=== PATIENT | female | born 1975 | race Caucasian/White ===

== ENCOUNTER 2016-06-29 14:38 | Emergency (ER) | payer OTHER ==
--- NOTE | 2016-06-29 16:47 | DIAGNOSTIC IMAGING REPORT ---
PROCEDURE: XR CHEST 2 VIEW INDICATION: FEVER TECHNIQUE: PA and lateral views. COMPARISON: None. FINDINGS: Lungs are clear. Heart and mediastinum are normal. Thorax is normal. IMPRESSION: 1. Negative chest.
--- NOTE | 2016-06-29 16:53 | ED CLINICAL REPORT ---
Clinical Report - Physicians/Mid Levels [facility] [address] [place] [address] 06/29/2016 14:41 Patient: MARGOT OATES Time Seen: 14:50 Jun 29 2016. Arrived- By private vehicle. Historian- patient. 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 The illness is described as mild. The patient has had a cough, chills and muscle aches. No difficulty breathing, chest discomfort, sore throat, hoarseness or nasal discharge. No sinus pressure. (3 days of cough, fatigue, myalgias and arthralgias. No sick contacts. No recent travel. No hemoptysis, no night sweats.). Additional history - No known contact with a sick individual. REVIEW OF SYSTEMS No headache, eye discomfort, nausea, vomiting or diarrhea. No abdominal pain, pedal edema, calf pain or skin rash. All systems otherwise negative, except as recorded above. PAST HISTORY Problems: Headache. Depression. Dental Caries. Additional Surgeries: Cholecystectomy. Medications: Vitamins/Minerals Oral. Phentermine HCl Oral (Capsule 30 mg) 1 capsule, daily. Topiramate 50mg daily. PROzac Oral 20 mg, daily. Allergies: No Known Drug Allergy. SOCIAL HISTORY Never smoker. No alcohol use or drug use. ADDITIONAL NOTES The nursing notes have been reviewed. PHYSICAL EXAM Vital Signs: 06/29/2016 14:45 BP: 146/103. HR: 86. RR: 18. O2 saturation: 100%. Temp: 98.0 F. Pain level now: 0/10. Appearance: Alert. Eyes: Eyes normal inspection. ENT: Ears normal. Pharynx normal. CVS: Normal heart rate and rhythm. Heart sounds normal. Normal rhythm. No extra heart sounds. Respiratory: No respiratory distress. Breath sounds normal. No retractions. Skin: Skin warm. LABS, X-RAYS, AND EKG Chest X-ray: (IMPRESSION: 1. Negative chest. Electronically Final signed by:Pan Dewitt MD 06/29/2016 4:50:37 PM). Laboratory Tests: Rapid Influenza Screen: (LAURA: 06/29/2016 14:50) ( MsgRcvd 06/29/2016 15:26) Final results SPECIMEN DESCRIPTION: N Test Result Flag Units (Reference) RAPID INFLUENZA SCREEN DATE: 06/29/16 INFLUENZA A: NEGATIVE SCREEN FOR INFLUENZA A INFLUENZA B: NEGATIVE SCREEN FOR INFLUENZA B . PROGRESS AND PROCEDURES Course of Care: Patient with 3 days of symptoms, afebrile in the ER, relatively negative exam, lungs clear. Rapid implants and negative, suspect viral etiology. No hemoptysis no recent foreign travel, no significant weight loss. 06/29/2016 16:52 BP: 144/97. HR: 81. RR: 16. O2 saturation: 99%. Patient is stable. Patient/family counseled. Differential Diagnosis: I considered viral bronchitis, laryngotracheobronchitis, viral pneumonia, bacterial bronchitis, mycoplasmal etiology and chlamydial bronchitis as a possible cause of cough in this patient. This is a partial list of diagnoses considered. Disposition: Discharged. CLINICAL IMPRESSION Acute upper respiratory infection. Acute viral syndrome INSTRUCTIONS Drink plenty of fluids. Warnings: Further evaluation is necessary. Prescription Medications: Tylenol with Codeine Tylenol #3 (30 mg / 300 mg) : take 1 tablet orally every 6 hours as needed for pain. Dispense ten (10). No refill. Substitution is permissible. Zofran (orally disintegrating tablets) 4 mg: take 1 orally every 6 hours for 3 days as needed for nausea and vomiting. Dispense fifteen (15). No refill. Substitution is permissible. OTC Medications: Motrin IB 200 mg (available over the counter): take 4 orally every 8 hours for 5 days, as needed for pain Follow-up: Follow up with your doctor in three days. (Electronically signed by Hayley Long P.A.-C 06/29/2016 17:35)
--- NOTE | 2016-06-29 16:53 | ED ORDER SUMMARY ---
..... Patient: MARGOT OATES OrderSheet [facility] VisitID: [id number] [address] [place] [address] 40y, F Registration Date/Time: 06/29/2016 ORDER SHEET Weight: 86.1 kg (stated) Allergies: No Known Drug Allergy GENERAL ORDERS: Rapid Influenza Screen (Nasal Pharyngeal) (n) Urgent (14:59 06/29/2016 EKoroleva P.A.-C) (Ack 15:02 NHouse ER Tech1) (15:02 NHouse ER Tech1) Chest 2V Urgent (15:43 06/29/2016 EKoroleva P.A.-C) (16:01 MCampbell) MEDICATION ORDERS: Tylenol w Codeine PO 2 tabs (HIGH ALERT MEDICATION, NOW) (16:52 06/29/2016 EKoroleva P.A.-C) (Ack 16:53 Nellie R.N.) (16:57 Nellie R.N.) IV FLUIDS: ORDER SHEET NOTES: [Electronically signed by Frieda Vasquez R.N. (17:01 06/29/2016)] [Electronically signed by Hayley Long P.A.-C (17:35 06/29/2016)] [Electronically locked/signed by Frieda Vasquez R.N. (17:01 06/29/2016)]
--- NOTE | 2016-06-29 16:53 | ED CLINICAL REPORT ---
Clinical Report - Physicians/Mid Levels [facility] [address] [place] [address] 06/29/2016 14:41 Patient: MARGOT OATES Time Seen: 14:50 Jun 29 2016. Arrived- By private vehicle. Historian- patient. 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 The illness is described as mild. The patient has had a cough, chills and muscle aches. No difficulty breathing, chest discomfort, sore throat, hoarseness or nasal discharge. No sinus pressure. (3 days of cough, fatigue, myalgias and arthralgias. No sick contacts. No recent travel. No hemoptysis, no night sweats.). Additional history - No known contact with a sick individual. REVIEW OF SYSTEMS No headache, eye discomfort, nausea, vomiting or diarrhea. No abdominal pain, pedal edema, calf pain or skin rash. All systems otherwise negative, except as recorded above. PAST HISTORY Problems: Headache. Depression. Dental Caries. Additional Surgeries: Cholecystectomy. Medications: Vitamins/Minerals Oral. Phentermine HCl Oral (Capsule 30 mg) 1 capsule, daily. Topiramate 50mg daily. PROzac Oral 20 mg, daily. Allergies: No Known Drug Allergy. SOCIAL HISTORY Never smoker. No alcohol use or drug use. ADDITIONAL NOTES The nursing notes have been reviewed. PHYSICAL EXAM Vital Signs: 06/29/2016 14:45 BP: 146/103. HR: 86. RR: 18. O2 saturation: 100%. Temp: 98.0 F. Pain level now: 0/10. Appearance: Alert. Eyes: Eyes normal inspection. ENT: Ears normal. Pharynx normal. CVS: Normal heart rate and rhythm. Heart sounds normal. Normal rhythm. No extra heart sounds. Respiratory: No respiratory distress. Breath sounds normal. No retractions. Skin: Skin warm. LABS, X-RAYS, AND EKG Chest X-ray: (IMPRESSION: 1. Negative chest. Electronically Final signed by:Pan Dewitt MD 06/29/2016 4:50:37 PM). Laboratory Tests: Rapid Influenza Screen: (LAURA: 06/29/2016 14:50) ( MsgRcvd 06/29/2016 15:26) Final results SPECIMEN DESCRIPTION: N Test Result Flag Units (Reference) RAPID INFLUENZA SCREEN DATE: 06/29/16 INFLUENZA A: NEGATIVE SCREEN FOR INFLUENZA A INFLUENZA B: NEGATIVE SCREEN FOR INFLUENZA B . PROGRESS AND PROCEDURES Course of Care: Patient with 3 days of symptoms, afebrile in the ER, relatively negative exam, lungs clear. Rapid implants and negative, suspect viral etiology. No hemoptysis no recent foreign travel, no significant weight loss. 06/29/2016 16:52 BP: 144/97. HR: 81. RR: 16. O2 saturation: 99%. Patient is stable. Patient/family counseled. Differential Diagnosis: I considered viral bronchitis, laryngotracheobronchitis, viral pneumonia, bacterial bronchitis, mycoplasmal etiology and chlamydial bronchitis as a possible cause of cough in this patient. This is a partial list of diagnoses considered. Disposition: Discharged. CLINICAL IMPRESSION Acute upper respiratory infection. Acute viral syndrome INSTRUCTIONS Drink plenty of fluids. Warnings: Further evaluation is necessary. Prescription Medications: Tylenol with Codeine Tylenol #3 (30 mg / 300 mg) : take 1 tablet orally every 6 hours as needed for pain. Dispense ten (10). No refill. Substitution is permissible. Zofran (orally disintegrating tablets) 4 mg: take 1 orally every 6 hours for 3 days as needed for nausea and vomiting. Dispense fifteen (15). No refill. Substitution is permissible. OTC Medications: Motrin IB 200 mg (available over the counter): take 4 orally every 8 hours for 5 days, as needed for pain Follow-up: Follow up with your doctor in three days. (Electronically signed by Hayley Long P.A.-C 06/29/2016 17:35)
--- NOTE | 2016-06-29 16:53 | ED NURSING NOTES ---
Clinical Report - Nurses [facility] [address] [place] [address] 06/29/2016 14:41 Patient: MARGOT OATES TRIAGE Triage time 14:47. Acuity: LEVEL 4. Chief Complaint: (dizzy and "super bad cough"). Alert. No acute distress. SEPSIS SCREEN: Sepsis Screen. Negative (no infection suspected/documented). SHADI COMA SCORE: [place] Coma Scale: 15- eyes open spontaneously (4); best verbal response- oriented x 4 (5); best motor response- obeys commands (6). --14:51 Frieda Vasquez R.N. 14:45 06/29/16. BP: 146/103. HR: 86. RR: 18. O2 saturation: 100%. Temp: 98.0 F. Pain level now: 0/10.. Pain level upon arrival: 0/10. Pain level at maximum: 10/10. (coughing). It has been waxing/waning. --14:51 Frieda Vasquez R.N. Weight: 86.1 kg stated. Height/Length: 64 inches Per Patient. BMI: 32.6. --14:48 Frieda Vasquez R.N. Medications PROzac Oral 20 mg, daily. --14:49 Frieda Vasquez R.N. Topiramate 50mg daily. --14:49 Frieda Vasquez R.N. Phentermine HCl Oral (Capsule 30 mg) 1 capsule, daily. --14:50 Frieda Vasquez R.N. Vitamins/Minerals Oral. --14:50 Frieda Vasquez R.N. Allergies No Known Drug Allergy. --14:50 Frieda Vasquez R.N. History Arrived by private vehicle. Historian: patient. Accompanied by family. Primary physician (Dr. Mario). Onset. (4 days ago continues to get worse). 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 PAST MEDICAL HX: Immunizations: up-to-date. SOCIAL HX: Never smoker. No alcohol use or drug use. No infectious disease exposure. ABUSE ASSESSMENT: Abuse assessment: The patient was asked "Do you feel safe in your home?" and "Has anyone hurt you or threatened to hurt you?". No report of abuse. SELF HARM ASSESSMENT: A self harm assessment was performed. The patient answered "no" to the question "Do you have thoughts of harming or killing yourself?" and "Have you recently had thoughts about harming or killing others?". NUTRITIONAL RISK ASSESSMENT: The nutritional risk assessment revealed no deficiencies. FUNCTIONAL ASSESSMENT: Functional assessment: no impairments noted. LEARNING NEEDS ASSESSMENT: The learning needs assessment revealed no barriers. --14:51 Frieda Vasquez R.N. PROBLEMS: Headache. Depression. Dental Caries. --14:50 Frieda Vasquez R.N. ADDITIONAL SURGERIES: Cholecystectomy. --14:51 Frieda Vasquez R.N. Interventions ID band on patient. Ambulatory. --14:51 Frieda Vasquez R.N. PHYSICAL ASSESSMENT Ambulatory to room. GENERAL / NEURO / PSYCH: Alert. Appears in no acute distress. HEENT: Mucous membranes are pink. RESPIRATORY: Respirations not labored. CVS: Capillary refill less than 2 seconds. SKIN: Skin is warm and dry. --14:51 Frieda Vasquez R.N. NURSING PROGRESS NOTES Head of bed elevated. Two patient identifiers checked. Call light placed in reach. Side rails up x 2. Bed placed in lowest position. Brakes of bed on. Patient ready for evaluation- chart flagged. --14:51 rFieda Vasquez R.N. 16:52 06/29/16. BP: 144/97. HR: 81. RR: 16. O2 saturation: 99%. --16:52 Frieda Vasquez R.N. Patient informed about reason for wait. --16:52 Frieda Vasquez R.N. 16:57 06/29/2016 TYLENOL W CODEINE (Acetaminophen-Codeine) PO 2 tab given. Allergies verified and confirmed 5 rights. --16:57 Frieda Vasquez R.N. DISPOSITION / DISCHARGE Departure time: 1652. ( BP: 144/97. HR: 81. RR: 16. O2 saturation: 99%). No learning barriers present. Discharge instructions provided and reviewed with the patient. Reviewed medication(s) side effects, precautions, dosing and course information. Prescription(s) given to the patient. Reviewed referral to family practice for followup. Patient verbalized understanding. Written instructions provided in [place]an. The patient was discharged home and accompanied by report manager. She left the Emergency Department ambulatory and via private vehicle. Parachute Marker driving. Medication list reviewed and validated. --17:00 Frieda Vasquez R.N. 16:52 06/29/16. RR: 16. --17:00 Frieda Vasquez R.N. Locked/Released at 06/29/2016 17:01 by Frieda Vasquez R.N.
--- NOTE | 2016-06-29 16:53 | ED NURSING NOTES ---
Clinical Report - Nurses [facility] [address] [place] [address] 06/29/2016 14:41 Patient: MARGOT OATES TRIAGE Triage time 14:47. Acuity: LEVEL 4. Chief Complaint: (dizzy and "super bad cough"). Alert. No acute distress. SEPSIS SCREEN: Sepsis Screen. Negative (no infection suspected/documented). SHADI COMA SCORE: [place] Coma Scale: 15- eyes open spontaneously (4); best verbal response- oriented x 4 (5); best motor response- obeys commands (6). --14:51 Frieda Vasquez R.N. 14:45 06/29/16. BP: 146/103. HR: 86. RR: 18. O2 saturation: 100%. Temp: 98.0 F. Pain level now: 0/10.. Pain level upon arrival: 0/10. Pain level at maximum: 10/10. (coughing). It has been waxing/waning. --14:51 Frieda Vasquez R.N. Weight: 86.1 kg stated. Height/Length: 64 inches Per Patient. BMI: 32.6. --14:48 Frieda Vasquez R.N. Medications PROzac Oral 20 mg, daily. --14:49 Frieda Vasquez R.N. Topiramate 50mg daily. --14:49 Frieda Vasquez R.N. Phentermine HCl Oral (Capsule 30 mg) 1 capsule, daily. --14:50 Frieda Vasquez R.N. Vitamins/Minerals Oral. --14:50 Frieda Vasquez R.N. Allergies No Known Drug Allergy. --14:50 Frieda Vasquez R.N. History Arrived by private vehicle. Historian: patient. Accompanied by family. Primary physician (Dr. Mario). Onset. (4 days ago continues to get worse). 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 PAST MEDICAL HX: Immunizations: up-to-date. SOCIAL HX: Never smoker. No alcohol use or drug use. No infectious disease exposure. ABUSE ASSESSMENT: Abuse assessment: The patient was asked "Do you feel safe in your home?" and "Has anyone hurt you or threatened to hurt you?". No report of abuse. SELF HARM ASSESSMENT: A self harm assessment was performed. The patient answered "no" to the question "Do you have thoughts of harming or killing yourself?" and "Have you recently had thoughts about harming or killing others?". NUTRITIONAL RISK ASSESSMENT: The nutritional risk assessment revealed no deficiencies. FUNCTIONAL ASSESSMENT: Functional assessment: no impairments noted. LEARNING NEEDS ASSESSMENT: The learning needs assessment revealed no barriers. --14:51 Frieda Vasquez R.N. PROBLEMS: Headache. Depression. Dental Caries. --14:50 Frieda Vasquez R.N. ADDITIONAL SURGERIES: Cholecystectomy. --14:51 Frieda Vasquez R.N. Interventions ID band on patient. Ambulatory. --14:51 Frieda Vasquez R.N. PHYSICAL ASSESSMENT Ambulatory to room. GENERAL / NEURO / PSYCH: Alert. Appears in no acute distress. HEENT: Mucous membranes are pink. RESPIRATORY: Respirations not labored. CVS: Capillary refill less than 2 seconds. SKIN: Skin is warm and dry. --14:51 Frieda Vasquez R.N. NURSING PROGRESS NOTES Head of bed elevated. Two patient identifiers checked. Call light placed in reach. Side rails up x 2. Bed placed in lowest position. Brakes of bed on. Patient ready for evaluation- chart flagged. --14:51 Frieda Vasquez R.N. 16:52 06/29/16. BP: 144/97. HR: 81. RR: 16. O2 saturation: 99%. --16:52 Frieda Vasquez R.N. Patient informed about reason for wait. --16:52 Frieda Vasquez R.N. 16:57 06/29/2016 TYLENOL W CODEINE (Acetaminophen-Codeine) PO 2 tab given. Allergies verified and confirmed 5 rights. --16:57 Frieda Vasquez R.N. DISPOSITION / DISCHARGE Departure time: 1652. ( BP: 144/97. HR: 81. RR: 16. O2 saturation: 99%). No learning barriers present. Discharge instructions provided and reviewed with the patient. Reviewed medication(s) side effects, precautions, dosing and course information. Prescription(s) given to the patient. Reviewed referral to family practice for followup. Patient verbalized understanding. Written instructions provided in Japanese. The patient was discharged home and accompanied by distribution spec. She left the Emergency Department ambulatory and via private vehicle. Soldering Technician driving. Medication list reviewed and validated. --17:00 Frieda Vasquez R.N. 16:52 06/29/16. RR: 16. --17:00 Frieda Vasquez R.N. Locked/Released at 06/29/2016 17:01 by Frieda Vasquez R.N.
--- NOTE | 2016-06-29 16:53 | ED ORDER SUMMARY ---
..... Patient: MARGOT OATES OrderSheet [facility] VisitID: [id number] [address] [place] [address] 40y, F Registration Date/Time: 06/29/2016 ORDER SHEET Weight: 86.1 kg (stated) Allergies: No Known Drug Allergy GENERAL ORDERS: Rapid Influenza Screen (Nasal Pharyngeal) (n) Urgent (14:59 06/29/2016 EKoroleva P.A.-C) (Ack 15:02 NHouse ER Tech1) (15:02 NHouse ER Tech1) Chest 2V Urgent (15:43 06/29/2016 EKoroleva P.A.-C) (16:01 MCampbell) MEDICATION ORDERS: Tylenol w Codeine PO 2 tabs (HIGH ALERT MEDICATION, NOW) (16:52 06/29/2016 EKoroleva P.A.-C) (Ack 16:53 Nellie R.N.) (16:57 Nellie R.N.) IV FLUIDS: ORDER SHEET NOTES: [Electronically signed by Frieda Vasquez R.N. (17:01 06/29/2016)] [Electronically signed by Hayley Long P.A.-C (17:35 06/29/2016)] [Electronically locked/signed by Frieda Vasquez R.N. (17:01 06/29/2016)]
--- NOTE | 2016-06-29 17:35 | ED DISCHARGE INSTRUCTIONS ---
Patient: MARGOT OATES General Instructions [facility] VisitID: [id number] [place] [address] 40y, F Registration Date/Time: 06/29/2016 Acute upper respiratory infection. Acute viral syndrome INSTRUCTIONS Drink plenty of fluids. Warnings: Further evaluation is necessary. Prescription Medications: Tylenol with Codeine Tylenol #3 (30 mg / 300 mg) : take 1 tablet orally every 6 hours as needed for pain. Dispense ten (10). No refill. Substitution is permissible. Zofran (orally disintegrating tablets) 4 mg: take 1 orally every 6 hours for 3 days as needed for nausea and vomiting. Dispense fifteen (15). No refill. Substitution is permissible. OTC Medications: Motrin IB 200 mg (available over the counter): take 4 orally every 8 hours for 5 days, as needed for pain Follow-up: Follow up with your doctor in three days. ADDITIONAL INFORMATION Viral Respiratory Illness [Adult] You have an Upper Respiratory Illness (URI) caused by a virus. This illness is contagious during the first few days. It is spread through the air by coughing and sneezing or by direct contact (touching the sick person and then touching your own eyes, nose or mouth). Most viral illnesses go away within 7-10 days with rest and simple home remedies. Sometimes, the illness may last for several weeks. Antibiotics will not kill a virus and are generally not prescribed for this condition. Home Care: 1) If symptoms are severe, rest at home for the first 2-3 days. When you resume activity, don't let yourself get too tired. 2) Avoid being exposed to cigarette smoke (yours or others). 3) Tylenol (acetaminophen) or ibuprofen (Advil, Motrin) will help fever, muscle aching and headache. (Persons under 18 with fever should not take aspirin since this may cause liver damage.) 4) Your appetite may be poor, so a light diet is fine. Avoid dehydration by drinking 6-8 glasses of fluids per day (water, soft drinks, juices, tea, soup). Extra fluids will help loosen secretions in the nose and lungs. 5) Ukwr-szf-kfpjpxs cold medicines will not shorten the length of time youre sick, but they may be helpful for the following symptoms: cough (Robitussin DM); sore throat (Chloraseptic lozenges or spray); nasal and sinus congestion (Actifed, Sudafed, Chlortrimeton). Follow Up with your doctor or as advised if you dont improve over the next week. Get Prompt Medical Attention if any of the following occur: -- Cough with lots of colored sputum (mucus) or blood in your sputum -- Chest pain, shortness of breath, wheezing or have trouble breathing -- Severe headache; face, neck or ear pain -- Fever over 100.4 F (38.0 C) for more than three days -- You cant swallow due to throat pain Viral Syndrome (Adult) A viral illness may cause a number of symptoms. The symptoms depend on the part of the body that the virus affects. If it settles in the nose, throat, and lungs, it may cause cough, sore throat, congestion, and sometimes headache. If it settles in the stomach and intestinal tract, it may cause vomiting and diarrhea. Sometimes it causes vague symptoms like "aching all over," feeling tired, loss of appetite, or fever. A viral illness usually lasts1 to 2 weeks, but sometimes it lasts longer. In some cases, a more serious infection can look like a viral syndrome in the first few days of the illness. You may need anotherexam and additional teststo know the difference.Watch for the warning signs listed below. Home care Follow these guidelines for taking care of yourself at home: If symptoms are severe, rest at home for the first 2 to 3 days. Stay away from cigarette smoke - both your smoke and the smoke from others. You may useacetaminophen or ibuprofen for fever, muscle aching, and headache, unless another medicine was prescribed for this.If you have chronic liver or kidney disease or ever had a stomach ulcer or GI bleeding, talk with your doctor before using these medicinesNo one who is younger than 18 and ill with a fever should take aspirin. It may cause severe liver damage. Your appetite may be poor, so a light diet is fine. Avoid dehydration by drinking 8 to 12 8-ounce glasses of fluids each day. This may include water; orange juice; lemonade; apple, grape, and cranberry juice; clear fruit drinks; electrolyte replacement and sports drinks; and decaffeinated teas and coffee. If you have been diagnosed with a kidney disease, ask your doctor how much and what types of fluids you should drink to prevent dehydration. If you have kidney disease, drinking too much fluid can cause it build up in the your body and be dangerous to your health. Lbij-gui-xmoaiuz remedies won't shorten the length of the illness but may be helpful forcough, sore throat; and nasal and sinus congestion. Don't use decongestants if you have high blood pressure. Follow-up care Follow up with your health care provider if you do not improve over the next week. When to seek medical care Get prompt medical attention if any of these occur: Cough with lots of colored sputum (mucus) or blood in your sputum Chest pain, shortness of breath, wheezing, or difficulty breathing Severe headache; face, neck, or ear pain Severe, constant pain in the lower right side of your belly (abdominal) Continued vomiting (cant keep liquids down) Frequent diarrhea (more than 5 times a day); blood (red or black color) or mucus in diarrhea Feeling weak, dizzy, or like you are going to faint Extreme thirst Fever of 100.4 F (38 C) oral or higher, not better with fever medication Convulsion Ondansetron Hydrochloride Oral tablet What is this medicine? ONDANSETRON (on PATRICIA se koko) is used to treat nausea and vomiting caused by chemotherapy. It is also used to prevent or treat nausea and vomiting after surgery. How should I use this medicine? Take this medicine by mouth with a glass of water. Follow the directions on your prescription label. Take your doses at regular intervals. Do not take your medicine more often than directed. Talk to your quality supervisor regarding the use of this medicine in children. Special care may be needed. What side effects may I notice from receiving this medicine? Side effects that you should report to your doctor or health director of home care hospice as soon as possible: allergic reactions like skin rash, itching or hives, swelling of the face, lips or tongue breathing problems dizziness fast or irregular heartbeat feeling faint or lightheaded, falls fever and chills swelling of the hands or feet tightness in the chest Side effects that usually do not require medical attention (report to your doctor or health director of home care hospice if they continue or are bothersome): constipation or diarrhea headache What may interact with this medicine? Do not take this medicine with any of the following medications: -apomorphine -cisapride -dofetilide -dronedarone -pimozide -thioridazine -ziprasidone This medicine may also interact with the following medications: -carbamazepine -phenytoin -rifampicin -tramadol -other medicines that prolong the QT interval (cause an abnormal heart rhythm) What if I miss a dose? If you miss a dose, take it as soon as you can. If it is almost time for your next dose, take only that dose. Do not take double or extra doses. Where should I keep my medicine? Keep out of the reach of children. Store between 2 and 30 degrees C (36 and 86 degrees F). Throw away any unused medicine after the expiration date. What should I tell my health care provider before I take this medicine? They need to know if you have any of these conditions: heart disease history of irregular heartbeat liver disease low levels of magnesium or potassium in the blood an unusual or allergic reaction to ondansetron, granisetron, other medicines, foods, dyes, or preservatives or trying to get breast-feeding What should I watch for while using this medicine? Check with your doctor or health director of home care hospice right away if you have any sign of an allergic reaction. Ibuprofen Oral tablet What is this medicine? IBUPROFEN (eye BYOO proe fen) is a non-steroidal anti-inflammatory drug (NSAID). It is used for dental pain, fever, headaches or migraines, osteoarthritis, rheumatoid arthritis, or painful monthly periods. It can also relieve minor aches and pains caused by a cold, flu, or sore throat. How should I use this medicine? Take this medicine by mouth with a glass of water. Follow the directions on the prescription label. Take this medicine with food if your stomach gets upset. Try to not lie down for at least 10 minutes after you take the medicine. Take your medicine at regular intervals. Do not take your medicine more often than directed. A special MedGuide will be given to you by the pharmacist with each prescription and refill. Be sure to read this information carefully each time. Talk to your quality supervisor regarding the use of this medicine in children. Special care may be needed. What side effects may I notice from receiving this medicine? Side effects that you should report to your doctor or health director of home care hospice as soon as possible: allergic reactions like skin rash, itching or hives, swelling of the face, lips, or tongue black or bloody stools, blood in the urine or in vomit breathing problems changes in vision chest pain general ill feeling or flu-like symptoms nausea or vomiting redness, blistering, peeling or loosening of the skin, including inside the mouth slurred speech or weakness on one side of the body stomach pain unexplained weight gain or swelling unusually weak or tired yellowing of eyes or skin Side effects that usually do not require medical attention (report to your doctor or health director of home care hospice if they continue or are bothersome): constipation or diarrhea dizziness gas or heartburn stomach upset What may interact with this medicine? Do not take this medicine with any of the following medications: cidofovir ketorolac methotrexate pemetrexed This medicine may also interact with the following medications: alcohol aspirin diuretics lithium other drugs for inflammation like prednisone warfarin What if I miss a dose? If you miss a dose, take it as soon as you can. If it is almost time for your next dose, take only that dose. Do not take double or extra doses. Where should I keep my medicine? Keep out of the reach of children. Store at room temperature between 15 and 30 degrees C (59 and 86 degrees F). Keep container tightly closed. Throw away any unused medicine after the expiration date. What should I tell my health care provider before I take this medicine? They need to know if you have any of these conditions: asthma cigarette smoker drink more than 3 alcohol containing drinks a day heart disease or circulation problems such as heart failure or leg edema (fluid retention) high blood pressure kidney disease liver disease stomach bleeding or ulcers an unusual or allergic reaction to ibuprofen, aspirin, other NSAIDS, other medicines, foods, dyes, or preservatives or trying to get breast-feeding What should I watch for while using this medicine? Tell your doctor or healthcare professional if your symptoms do not start to get better or if they get worse. This medicine does not prevent heart attack or stroke. In fact, this medicine may increase the chance of a heart attack or stroke. The chance may increase with longer use of this medicine and in people who have heart disease. If you take aspirin to prevent heart attack or stroke, talk with your doctor or health director of home care hospice. Do not take other medicines that contain aspirin, ibuprofen, or naproxen with this medicine. Side effects such as stomach upset, nausea, or ulcers may be more likely to occur. Many medicines available without a prescription should not be taken with this medicine. This medicine can cause ulcers and bleeding in the stomach and intestines at any time during treatment. Ulcers and bleeding can happen without warning symptoms and can cause . To reduce your risk, do not smoke cigarettes or drink alcohol while you are taking this medicine. You may get drowsy or dizzy. Do not drive, use machinery, or do anything that needs mental alertness until you know how this medicine affects you. Do not stand or sit up quickly, especially if you are an older patient. This reduces the risk of dizzy or fainting spells. This medicine can cause you to bleed more easily. Try to avoid damage to your teeth and gums when you brush or floss your teeth. You have been given the following additional information: Uri, Viral, No Abx (Adult) Viral Syndrome (Adult) Ondansetron Hydrochloride Oral tablet Ibuprofen Oral tablet (Electronically signed by Hayley Long P.A.-C 06/29/2016 17:35)
--- NOTE | 2016-06-29 17:36 | ED MED RECONCILIATION SUMMARY ---
Patient: MARGOT OATES Medication Reconciliation Report [facility] VisitID: [id number] [address] [place] [address] 40y, F Registration Date/Time: 06/29/2016 Weight: 86.1 kg Height/Length: 64 in. BMI: 32.6 ALLERGIES: No Known Drug Allergy The patient's Home Medications are listed below: THE FOLLOWING MEDICATIONS NEED TO BE RECONCILED: Phentermine HCl Oral (30 mg) 1 capsule, daily PROzac Oral 20 mg, daily Topiramate 50mg daily Vitamins/Minerals Oral The source(s) of the original Home Medication information: Not obtained. The following Medications were given to the patient in the Emergency Department: TYLENOL W CODEINE [PO] PO 2 tab, administered: 06/29/2016 4:57:00 PM The following Medications were prescribed to the patient: Motrin IB 200 mg (available over the counter): take 4 orally every 8 hours for 5 days, as needed for pain -- Hayley Long P.Cesar Tylenol with Codeine Tylenol #3 (30 mg / 300 mg) : take 1 tablet orally every 6 hours as needed for pain. Dispense ten (10). No refill. Substitution is permissible. -- Hayley Long P.AYolanda Zofran (orally disintegrating tablets) 4 mg: take 1 orally every 6 hours for 3 days as needed for nausea and vomiting. Dispense fifteen (15). No refill. Substitution is permissible. -- Hayley Long P.AYolanda
--- NOTE | 2016-06-29 17:36 | ED MAR SUMMARY ---
..... Medication Administration Record [facility] [address] [place] [address] Patient: MARGOT OATES Visit ID: [id number] 40y, F Weight: 86.1 kg Height/Length: 64 in BMI: 32.6 ALLERGIES: No Known Drug Allergy Given 16:57 06/29/2016 Frieda Vasquez R.N. Medication Administered: TYLENOL W CODEINE [PO] (ACETAMINOPHEN-CODEINE), Dose: 2 tab PO. Medication Ordered: Tylenol w Codeine PO 2 tabs (HIGH ALERT MEDICATION, NOW).
--- NOTE | 2016-06-29 17:36 | ED MAR SUMMARY ---
..... Medication Administration Record [facility] [address] [place] [address] Patient: MARGOT OATES Visit ID: [id number] 40y, F Weight: 86.1 kg Height/Length: 64 in BMI: 32.6 ALLERGIES: No Known Drug Allergy Given 16:57 06/29/2016 Frieda Vasquez R.N. Medication Administered: TYLENOL W CODEINE [PO] (ACETAMINOPHEN-CODEINE), Dose: 2 tab PO. Medication Ordered: Tylenol w Codeine PO 2 tabs (HIGH ALERT MEDICATION, NOW).
--- NOTE | 2016-06-29 17:36 | ED MED RECONCILIATION SUMMARY ---
Patient: MARGOT OATES Medication Reconciliation Report [facility] VisitID: [id number] [address] [place] [address] 40y, F Registration Date/Time: 06/29/2016 Weight: 86.1 kg Height/Length: 64 in. BMI: 32.6 ALLERGIES: No Known Drug Allergy The patient's Home Medications are listed below: THE FOLLOWING MEDICATIONS NEED TO BE RECONCILED: Phentermine HCl Oral (30 mg) 1 capsule, daily PROzac Oral 20 mg, daily Topiramate 50mg daily Vitamins/Minerals Oral The source(s) of the original Home Medication information: Not obtained. The following Medications were given to the patient in the Emergency Department: TYLENOL W CODEINE [PO] PO 2 tab, administered: 06/29/2016 4:57:00 PM The following Medications were prescribed to the patient: Motrin IB 200 mg (available over the counter): take 4 orally every 8 hours for 5 days, as needed for pain -- Hayley Long P.Cesar Tylenol with Codeine Tylenol #3 (30 mg / 300 mg) : take 1 tablet orally every 6 hours as needed for pain. Dispense ten (10). No refill. Substitution is permissible. -- Hayley Long P.AYolanda Zofran (orally disintegrating tablets) 4 mg: take 1 orally every 6 hours for 3 days as needed for nausea and vomiting. Dispense fifteen (15). No refill. Substitution is permissible. -- Hayley Long P.AYolanda
== END 2016-06-29 16:52 | disposition home or self-care (01) ==
LOC: ED SRH 14:38
DX: J06.9 Acute upper respiratory infection, unspecified (principal); B34.9 Viral infection, unspecified
CPT/HCPCS: 91400